=== PATIENT | female | born 2000 | race Two or more races ===

== ENCOUNTER 2023-12-25 09:05 | Inpatient (IN) | payer OTHER ==
[~2023-12-25] VITALS: Ht 157.5 cm; Wt 71.6 kg
[2023-12-25 11:21] LABS: COVID AG,FIA SOURCE NASAL SWAB
[2023-12-25 11:42] LABS: SARS-COV2 (COVID) ANTIGEN,FIA Negative (Negative)
[2023-12-25 13:29] LABS: BASOPHILS % (AUTO) 0.6 % (0.0-2.0); EOSINOPHILS % (AUTO) 1.3 % (1.0-6.0); HEMATOCRIT 43.8 % (36-46); HEMOGLOBIN 14.6 g/dL (12.0-16.0); LYMPHOCYTES # (AUTO) 2.9 K/uL (1.0-4.8); LYMPHOCYTES % (AUTO) 37.2 % (22.0-44.0); MEAN CORPUSCULAR HEMOGLOBIN 28.5 pg (26.0-34.0); MEAN CORPUSCULAR HGB CONC 33.3 G/dL (31.0-37.0); MEAN CORPUSCULAR VOLUME 86 fL (80-100); MONOCYTES # (AUTO) 0.3 K/uL (0.1-1.0); NEUTROPHILS # (AUTO) 4.4 K/uL (1.8-7.7); NEUTROPHILS % (AUTO) 56.9 % (40.0-70.0); PLATELET COUNT (AUTO) 404 K/uL (150-450); RED BLOOD CELL COUNT(AUTO) 5.11 MIL/uL (4.00-5.20); RED CELL DISTRIBUTION WIDTH 13.4 % (11.5-14.5); WHITE BLOOD COUNT (AUTO) 7.7 K/uL (4.5-11.0)
[2023-12-25 13:47] LABS: ALCOHOL, BLOOD (SERUM) < 3 mg/dL (0-10)
[2023-12-25 13:48] LABS: ANION GAP 12 mmol/L (8-16); CALCIUM, TOTAL 9.1 mg/dL (8.8-10.5); CARBON DIOXIDE 26 mmol/L (22-29); CHLORIDE 104 mmol/L (98-107); CREATININE 0.95 mg/dL (0.60-1.30); GLOMERULAR FILTR. RATE CALC > 60 mL/min (>60); GLUCOSE,RANDOM 102 mg/dL (70-110); SODIUM SERUM 142 mmol/L (136-145); UREA NITROGEN, BLOOD 7 mg/dL (7-18)
[2023-12-25] MEDS: POTASSIUM CHLORIDE 20 MEQ ER TABLET PO ONE (14:31)
[2023-12-25 16:09] VITALS: O2SAT 98
[2023-12-25] MEDS ORDERED: LORazepam 2 MG TABLET PO PRN (16:15)
[2023-12-25] MEDS ORDERED: HALOPERIDOL 5 MG TABLET PO PRN (16:15)
[2023-12-25] MEDS ORDERED: ZOLPIDEM TARTRATE 10 MG TABLET PO PRN (16:15)
[2023-12-25 18:18] VITALS: BP 117/75; PULSE 106; RESP 20; TEMP 98; O2SAT 98
[2023-12-25 21:16] VITALS: BP 119/67; PULSE 95; RESP 19; TEMP 98.5; O2SAT 99
[2023-12-25] MEDS ORDERED: LORazepam 2 MG/ML VIAL ONE (22:30)
[2023-12-25] MEDS ORDERED: HALOPERIDOL LACTATE 5 MG/ML VIAL ONE (22:30)
[2023-12-25] MEDS ORDERED: DiphenhydrAMINE HCL 50 MG/ML VIAL ONE (22:31)
[2023-12-25] MEDS: DiphenhydrAMINE HCL 50 MG/ML VIAL IM ONE (22:57)
[2023-12-25] MEDS: LORazepam 2 MG/ML VIAL IM ONE (22:58)
[2023-12-25] MEDS: HALOPERIDOL LACTATE 5 MG/ML VIAL IM ONE (23:04)
[2023-12-26 08:56] VITALS: BP 103/72; PULSE 75; RESP 16; TEMP 96.9; O2SAT 97
[2023-12-26] MEDS ORDERED: ACETAMINOPHEN 325 MG TABLET PO PRN (09:15)
[2023-12-26] MEDS ORDERED: MAGNESIUM HYDROXIDE SUSPENSION 30 ML UDCUP PO PRN (09:15)
[2023-12-26] MEDS ORDERED: CloNIDine HCL 0.1 MG TABLET PO PRN (09:15)
[2023-12-26] MEDS ORDERED: IBUPROFEN 400 MG TABLET PO PRN (09:15)
[2023-12-26] MEDS ORDERED: PETROLATUM,WHITE 28 GM JELLY TP PRN (09:15)
[2023-12-26] MEDS ORDERED: GuaiFENesin/D-METHORPHAN [SUGAR-FREE] 200-20MG/10 ML SYRUP UDCUP PO PRN (09:15)
[2023-12-26] MEDS ORDERED: NICOTINE 14 MG/24 HOUR PATCH TD PRN (09:15)
[2023-12-26] MEDS ORDERED: ONDANSETRON 4 MG TABLET PO PRN (09:15)
[2023-12-26] MEDS ORDERED: ALBUTEROL SULFATE HFA 90 MCG/PUFF 8 GM INHALER IH PRN (09:15)
[2023-12-26] MEDS ORDERED: LOPERAMIDE HCL 2 MG CAPSULE PO PRN (09:15)
[2023-12-26] MEDS ORDERED: MAG HYDROX/ALUMINUM HYD/SIMETH ES 30 ML SUSPENSION UDCUP PO PRN (09:15)
[2023-12-26] MEDS ORDERED: DOCUSATE SODIUM 100 MG CAPSULE PO PRN (09:15)
[2023-12-26] MEDS: FLUoxetine HCL 20 MG CAPSULE PO SCH (15:47)
[2023-12-26] MEDS: OLANZapine 5 MG TABLET PO SCH (16:31)
[2023-12-26 21:33] VITALS: BP 119/78; PULSE 105; RESP 15; TEMP 98; O2SAT 97
[2023-12-27 09:25] VITALS: BP 122/91; PULSE 106; RESP 17; TEMP 98.1; O2SAT 97
[2023-12-27 16:13] LABS: BASOPHILS % (AUTO) 0.4 % (0.0-2.0); EOSINOPHILS % (AUTO) 0.4 % (1.0-6.0); HEMATOCRIT 42.3 % (36-46); HEMOGLOBIN 13.9 g/dL (12.0-16.0); LYMPHOCYTES # (AUTO) 1.9 K/uL (1.0-4.8); LYMPHOCYTES % (AUTO) 23.2 % (22.0-44.0); MEAN CORPUSCULAR HEMOGLOBIN 28.3 pg (26.0-34.0); MEAN CORPUSCULAR HGB CONC 32.8 G/dL (31.0-37.0); MEAN CORPUSCULAR VOLUME 86 fL (80-100); MONOCYTES # (AUTO) 0.3 K/uL (0.1-1.0); MONOCYTES % (AUTO) 3.4 % (2.0-9.0); NEUTROPHILS # (AUTO) 5.8 K/uL (1.8-7.7); NEUTROPHILS % (AUTO) 72.6 % (40.0-70.0); PLATELET COUNT (AUTO) 374 K/uL (150-450); RED BLOOD CELL COUNT(AUTO) 4.91 MIL/uL (4.00-5.20); RED CELL DISTRIBUTION WIDTH 13.3 % (11.5-14.5)
[2023-12-27 16:22] LABS: HEMOGLOBIN A1C 5.4 % (3.8-5.6)
[2023-12-27 16:31] LABS: ALANINE AMINOTRANSFERASE 16 U/L (12-78); ALBUMIN 4.1 g/dL (3.4-5.0); ALKALINE PHOSPHATASE 66 U/L (46-116); ANION GAP 11 mmol/L (8-16); ASPARTATE AMINOTRANSFERASE 18 U/L (15-37); CALCIUM, TOTAL 9.4 mg/dL (8.8-10.5); CARBON DIOXIDE 27 mmol/L (22-29); CHLORIDE 102 mmol/L (98-107); CREATININE 0.67 mg/dL (0.60-1.30); GLOMERULAR FILTR. RATE CALC > 60 mL/min (>60); GLUCOSE,RANDOM 104 mg/dL (70-110); POTASSIUM 3.4 mmol/L (3.5-5.1); SODIUM SERUM 140 mmol/L (136-145); THYROID STIMULATING HORMONE 1.27 uIU/mL (0.36-3.74); TOTAL PROTEIN, SERUM 7.9 g/dL (6.4-8.2); UREA NITROGEN, BLOOD 4 mg/dL (7-18)
[2023-12-27 20:04] VITALS: BP 119/75; PULSE 68; RESP 18; TEMP 97; O2SAT 97
[2023-12-28 08:46] LABS: CHOL/HDL RATIO 2.1 (3.9-5.7)
[2023-12-28 09:00] VITALS: BP 132/85; PULSE 103; RESP 20; TEMP 98.4; O2SAT 96
[2023-12-28] MEDS ORDERED: FLUO-418 PO (11:16)
== END 2023-12-28 17:19 | disposition home or self-care (01) | DRG 881 ==
LOC: EMS 09:05 → 3EI 16:09
PROVIDERS: ADMIT Psychiatry & Neurology Child & Adolescent Psychiatry; ATTEND Psychiatry & Neurology Child & Adolescent Psychiatry
PROC: GZ56ZZZ Individual Psychotherapy, Supportive (ICD-10-PCS; principal; 2023-12-26)
DX: F32.9 Major depressive disorder, single episode, unspecified (principal); I10 Essential (primary) hypertension; E87.6 Hypokalemia; Z20.822 Contact with and (suspected) exposure to COVID-19; F22 Delusional disorders; F41.9 Anxiety disorder, unspecified; F42.9 Obsessive-compulsive disorder, unspecified; R00.0 Tachycardia, unspecified; G47.00 Insomnia, unspecified
CPT/HCPCS: 80048; 80053; 80061; 83036; 84132; 84443; 84703; 85025; 99285; G0480; J1200; J1630; J2060